=== PATIENT | female | born 1970 | race Caucasian/White ===

== ENCOUNTER 2019-11-23 09:36 | Emergency (ER) | payer BC ==
[2019-11-23 10:02] VITALS: BP 127/80
--- NOTE | 2019-11-23 10:13 | UC ---
Hand/Wrist HPI - HPI Summary HPI Summary: 49-year-old female presents with complaints of bilateral hand tingling and burning for several years. States the tingling and burning tends to be worse at night although over the last few years she has been noticing it more constantly. No history of injury. States she was evaluated by her primary care provider at the [facility] last week and had bilateral x-rays performed which were normal. Denies any weakness. - History Of Current Complaint Chief Complaint: UCUpperExtremity Stated Complaint: BILATERAL HAND COMPLAINT Time Seen by Provider: 11/23/19 09:54 Hx Obtained From: Patient Pain Intensity: 9 - Allergies/Home Medications Allergies/Adverse Reactions: Allergies Allergy/AdvReac Type Severity Reaction Status Date / Time steroids Allergy See Comment Uncoded 11/23/19 09:51 Home Medications: Home Medications Gabapentin CAP(*) [Neurontin 100 mg CAP(*)] 100 mg PO TID 11/23/19 [History Confirmed 11/23/19] Hydrocodone/Acetaminophen [Hydrocodone/Acetaminophen 10-325 mg] 1 tab PO Q8HR PRN 11/23/19 [History Confirmed 11/23/19] Lisdexamfetamine Dimesylate [Vyvanse] 30 mg PO DAILY 11/23/19 [History Confirmed 11/23/19] PARoxetine HCL TAB* [Paxil TAB*] 30 mg PO DAILY 11/23/19 [History Confirmed ] Propranolol TAB* [Inderal TAB*] 30 mg PO DAILY 11/23/19 [History Confirmed 11/23] Ropinirole TAB* [Requip TAB*] 3 mg PO BID 11/23/19 [History Confirmed 11/23/19] busPIRone TAB* [Buspar TAB*] 15 mg PO BID 11/23/19 [History Confirmed 11/23/19] metFORMIN* [Glucophage 500 MG TAB *] 500 mg PO BID 11/23/19 [History Confirmed 11/23/19] PMH/Surg Hx/FS Hx/Imm Hx - Additional Past Medical History Additional PMH: Chronic pain syndrome, fibromyalgia Endocrine History: Diabetes - Prediabetic Psychological History: Bipolar Disorder - Surgical History Surgical History: Yes Surgery Procedure, Year, and Place: D&C. partial hysterectomy. kidney stone removals - Family History Known Family History: Positive: Non-Contributory - Social History Occupation: Employed Full-time Lives: With Family Alcohol Use: None Substance Use Type: None Smoking Status (MU): Heavy Every Day Tobacco Smoker Type: Cigarettes Amount Used/How Often: 1/2 PPD Review of Systems All Other Systems Reviewed And Are Negative: Yes Constitutional: Negative: Fever, Chills Skin: Negative: Rash, Bruising Respiratory: Positive: Negative Cardiovascular: Positive: Negative Gastrointestinal: Positive: Negative Genitourinary: Positive: Negative Motor: Negative: Weakness Neurovascular: Positive: Decreased Sensation Musculoskeletal: Positive: Other: - See HPI. Negative: Decreased ROM Neurological: Positive: Paresthesia Is Patient Immunocompromised?: No Physical Exam - Summary Physical Exam Summary: GENERAL APPEARANCE: Well developed, well nourished, alert and cooperative, and appears to be in no acute distress. CARDIAC: Normal S1 and S2. No S3, S4 or murmurs. Rhythm is regular. There is no peripheral edema, cyanosis or pallor. Extremities are warm and well perfused. Capillary refill is less than 2 seconds. Peripheral pulses intact. LUNGS: Clear to auscultation without rales, rhonchi, wheezing or diminished breath sounds. ABDOMEN: Positive bowel sounds. Soft, nondistended, nontender. No guarding or rebound. No masses or hepatosplenomegally. MUSKULOSKELETAL: ROM intact to all extremities. No joint erythema or tenderness. EXTREMITIES: Decreased sensation in the median nerve distribution of bilateral hands with some atrophy of the bilateral thenar eminence. Statistical Analyst strength equal bilaterally. + Tinel test. SKIN: Skin normal color, texture and turgor with no lesions or eruptions. Triage Information Reviewed: Yes Vital Signs: Initial Vital Signs Temp 98.3 F 11/23/19 09:55 Pulse 85 11/23/19 09:55 Resp 17 11/23/19 09:55 BP 127/80 11/23/19 09:55 Pulse Ox 100 11/23/19 09:55 Vital Signs Reviewed: Yes Hand/Wrist Course/Dx - Course Course Of Treatment: 49-year-old female presents with complaints of bilateral hand tingling and burning involving the first three digits and the radial half of the fourth digit for several years. States the tingling and burning tends to be worse at night although over the last few years she has been noticing it more constantly. No history of injury. States she was evaluated by her primary care provider at the [facility] last week and had bilateral x-rays performed which were normal. Denies any weakness. Afebrile. Vital signs stable. Patient had decreased sensation in the median nerve distribution of bilateral hands with some atrophy of the bilateral thenar eminences. Statistical Analyst strength equal bilaterally. + Tinel test. Discussed with patient that her history and exam are consistent with carpal tunnel syndrome and am recommending conservative treatment at this time including NSAIDs and nocturnal splinting. She is to follow up with orthopedic surgery within 7 days for further evaluation and treatment. Anticipatory guidance and warning symptoms reviewed with patient. Verbalizes understanding and agrees with POC. - Differential Dx/Diagnosis Differential Diagnosis/HQI/PQRI: Carpal Tunnel Syndrome, Tendonitis, Tenosynovitis Provider Diagnosis: Bilateral carpal tunnel syndrome Discharge ED - Sign-Out/Discharge Documenting (check all that apply): Patient Departure All imaging exams completed and their final reports reviewed: No Studies - Discharge Plan Condition: Stable Disposition: HOME Patient Education Materials: Paresthesia (ED) Referrals: Vishnu Gold MD [Medical Doctor] - 7 Days (Call for appointment.) No Primary Care Phys,NOPCP [Primary Care Provider] - Additional Instructions: Your history and physical are consistent with carpal tunnel syndrome. Use the splints that were provided to you every night to help with the burning and tingling. Use an over the counter anti-inflammatory pain medication such as ibuprofen ( Advil, Motrin) or naproxen (Aleve) according to directions for pain. You may also continue to use your pain medication as directed. Follow up with orthopedic surgery within 7 days for further evaluation and treatment. Call for appointment. Seek immediate medical attention in the emergency room if you have severe pain not managed with pain medications, you lose function of your hand(s), or have any worsening of symptoms. - Billing Disposition and Condition Condition: STABLE Disposition: Home
== END 2019-11-23 10:39 | disposition home or self-care (01) ==
LOC: UCCORT 09:36
DX: G56.03 Carpal tunnel syndrome, bilateral upper limbs (principal); F31.9 Bipolar disorder, unspecified; M79.7 Fibromyalgia; G89.4 Chronic pain syndrome; E11.9 Type 2 diabetes mellitus without complications; F17.210 Nicotine dependence, cigarettes, uncomplicated; Z88.8 Allergy status to other drugs, medicaments and biological substances; Z79.84 Long term (current) use of oral hypoglycemic drugs
CPT/HCPCS: 99213; G0463

== ENCOUNTER 2021-07-06 07:31 | Observation (INO) ==
[~2021-07-06 07:31] MED LIST: Buffered Lidocaine 1% SYRIN 1 ml INTRADERM ONE; DiMENhydriNATE IV 50 mg/ml 1 ml VIAL IV PUSH ONE; HYDROcodone/ACETAMIN 5/325 mg TAB PO PRN; Lactated Ringers 1000 ml BAG 1,000 ML IV SCH; Metoclopramide 5 MG/ML VIAL (10 mg) IV PRN; Naloxone 0.4 mg VIAL 0.4 mg/ml 1 ml VIAL IV PRN; Ondansetron 4 mg VIAL 2 MG/ML 2 ml VIAL IV PRN
[2021-07-06] MEDS ORDERED: DiMENhydriNATE IV 50 mg/ml 1 ml VIAL ONE (08:03)
[2021-07-06] MEDS ORDERED: DiMENhydriNATE IV 50 mg/ml 1 ml VIAL IM ONE (08:03)
[2021-07-06] MEDS ORDERED: ceFAZolin 2 GM in NS PREMIX 2 GM/100 ML BAG IVPB ONE ×2 (08:04)
[2021-07-06] MEDS ORDERED: fentaNYL 100 mcg/2 ml 50 MCG/ML VIAL ONE ×9 (08:45→14:08)
[2021-07-06] MEDS ORDERED: Midazolam 2 mg/2 ml VIAL 1 mg/ml 2 ml VIAL (2 mg) ONE ×2 (08:45)
[2021-07-06] MEDS ORDERED: Phenylephrine IV 10 MG/ML 1 ml VIAL ONE (08:47)
[2021-07-06] MEDS ORDERED: Propofol 0 MG/0 ML BTL ONE (08:47)
[2021-07-06] MEDS ORDERED: Sodium Citrate/Citric Acid LIQ 15 ML UDC PO ONE (08:53)
[2021-07-06] MEDS ORDERED: Propofol 10 MG/ML 20 ML BTL ONE ×2 (08:55)
[2021-07-06] MEDS ORDERED: Lidocaine 2% PF 5 ML VIAL ONE ×2 (08:55)
[2021-07-06] MEDS ORDERED: Sodium Citrate/Citric Acid LIQ 15 ML UDC ONE ×2 (08:56)
[2021-07-06] MEDS ORDERED: Bupivacaine 0.5% SDV PF 30ML VIAL ONE ×2 (09:04)
[2021-07-06] MEDS ORDERED: Midazolam 5 mg/5 ml VIAL 1 mg/ml 5 ml VIAL (5 mg) ONE (09:08)
[2021-07-06] MEDS ORDERED: ROPIVACAINE 5 MG/ML 30 ML BTL (0.5%) ONE (09:24)
[2021-07-06] MEDS ORDERED: Rocuronium 50 mg VIAL 10 mg/ml 5 ml VIAL (50 mg) INJ ONE (09:54)
[2021-07-06] MEDS ORDERED: Rocuronium 50 mg VIAL 10 mg/ml 5 ml VIAL (50 mg) ONE (09:54)
[2021-07-06] MEDS ORDERED: Ondansetron 4 mg VIAL 2 MG/ML 2 ml VIAL IM ONE (10:15)
[2021-07-06] MEDS ORDERED: Ondansetron 4 mg VIAL 2 MG/ML 2 ml VIAL ONE (10:15)
[2021-07-06] MEDS ORDERED: Dexamethasone IV 4 MG/ML VIAL 1 ml VIAL ONE ×2 (10:15)
[2021-07-06] MEDS ORDERED: Ondansetron 4 mg VIAL 2 MG/ML 2 ml VIAL IV PRN (10:36)
[2021-07-06] MEDS ORDERED: diPHENhydraMINE 25 mg TAB PO PRN (10:36)
[2021-07-06] MEDS ORDERED: Morphine 2 MG/ML SYRINGE IV PRN (10:36)
[2021-07-06] MEDS ORDERED: Ondansetron ODT 4 mg TAB 4 MG TAB PO ONE (10:36)
[2021-07-06] MEDS ORDERED: diPHENhydraMINE IV 50 MG/ML 1 ml VIAL (BENADRYL) IV PRN (10:36)
[2021-07-06] MEDS ORDERED: Magnesium Hydroxide LIQ 30 ML UDC PO PRN (10:36)
[2021-07-06] MEDS ORDERED: Lactulose 30 ml UDC PO PRN (10:36)
[2021-07-06] MEDS ORDERED: Sevoflurane BOTTLE ONE (10:53)
[2021-07-06] MEDS ORDERED: HYDROmorphone 1 MG/1 ML SYRINGE ONE (10:57)
[2021-07-06] MEDS ORDERED: HYDROmorphone 1 MG/1 ML SYRINGE IM ONE (10:57)
[2021-07-06] MEDS: fentaNYL 100 mcg/2 ml 50 MCG/ML VIAL IV PRN ×6 (12:50→14:09)
[2021-07-06] MEDS ORDERED: fentaNYL 100 mcg/2 ml 50 MCG/ML VIAL IV PRN (14:33)
[2021-07-06] MEDS: Lactated Ringers 1000 ml BAG 1,000 ML IV SCH (14:56)
[2021-07-06] MEDS ORDERED: ceFAZolin 1 GM ADVAN 1 GM in NS 0.9% 50 ML 50 ML IVPB ONE (18:00)
[2021-07-06] MEDS: ceFAZolin 1 GM ADVAN 1 GM in NS 0.9% 50 ML 50 ML IVPB SCH (18:19)
[2021-07-06] MEDS ORDERED: Magnesium Hydroxide LIQ 30 ML UDC PO ONE (21:00)
[2021-07-06] MEDS: Magnesium Hydroxide LIQ 30 ML UDC PO SCH (21:06)
[2021-07-07] MEDS: Ondansetron ODT 4 mg TAB 4 MG TAB PO PRN ×2 (00:35→12:40)
[2021-07-07] MEDS: ceFAZolin 1 GM ADVAN 1 GM in NS 0.9% 50 ML 50 ML IVPB SCH ×2 (01:42→10:15)
[2021-07-07] MEDS: Lactated Ringers 1000 ml BAG 1,000 ML IV SCH (01:44)
[2021-07-07 06:39] LABS: Hematocrit 33 % (35-47); Hemoglobin 11.3 g/dL (12.0-16.0); Mean Platelet Volume 8.6 fL (7.4-10.4); Platelet Count 244 10^3/uL (150-450)
[2021-07-07 06:55] LABS: Calcium 8.7 mg/dL (8.6-10.3); EGFR African American 100.5 (>60); EGFR Non-African American 83.1 (>60); Potassium 3.9 mmol/L (3.5-5.0)
[2021-07-07] MEDS: Vitamin THERAPEUTIC TAB PO SCH (07:28)
[2021-07-07] MEDS: Magnesium Hydroxide LIQ 30 ML UDC PO SCH ×2 (07:29→20:14)
[2021-07-07] MEDS ORDERED: Vitamin THERAPEUTIC TAB PO ONE (09:00)
[2021-07-08 05:02] LABS: Hematocrit 34 % (35-47); Hemoglobin 11.3 g/dL (12.0-16.0); Mean Platelet Volume 8.4 fL (7.4-10.4); Platelet Count 222 10^3/uL (150-450)
[2021-07-08] MEDS: Vitamin THERAPEUTIC TAB PO SCH (07:42)
[2021-07-08] MEDS: Magnesium Hydroxide LIQ 30 ML UDC PO SCH (07:42)
[2021-07-08 07:56] VITALS: BP 120/70
[2021-07-08] MEDS: Ondansetron ODT 4 mg TAB 4 MG TAB PO PRN (09:18)
[2021-07-08] MEDS ORDERED: HYDROcodone/ACETAMIN 5/325 mg TAB PO PRN (11:30)
== END 2021-07-08 11:30 | disposition home or self-care (01) ==
LOC: INTOOBSV 07:31 → AA 07:31 → SSU 15:02
PROVIDERS: ADMIT Orthopaedic Surgery Adult Reconstructive Orthopaedic Surgery; ATTEND Orthopaedic Surgery Adult Reconstructive Orthopaedic Surgery